=== PATIENT | female | born 1940 | race Caucasian/White ===

== ENCOUNTER 2020-03-29 17:49 | Inpatient (IN) | payer OTHER, BC ==
[~2020-03-29] VITALS: Ht 152.4 cm; Wt 59.7 kg
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
[2020-03-29 17:52] VITALS: BP 133/56
[2020-03-29 19:14] LABS: URINE BILIRUBIN NEGATIVE (Negative); URINE BLOOD TRACE (Negative); URINE COLOR YELLOW; URINE GLUCOSE-RANDOM* NEGATIVE (Negative); URINE KETONES NEGATIVE (Negative); URINE NITRITE-REFLEX NEGATIVE (Negative); URINE PROTEIN (DIPSTICK) NEGATIVE (Negative); URINE SPECIFIC GRAVITY 1.015 (1.005-1.035); URINE UROBILINOGEN 0.2 E.U./dl (0.2-1.0)
[2020-03-29 19:15] LABS: URINE CLARITY SL HAZY; URINE LEUKOCYTES-REFLEX 3+ (Negative)
[2020-03-29] MEDS ORDERED: NORVASC 2.5 MG2.5 M1 PO (19:18)
[2020-03-29 19:19] LABS: SQUAMOUS 4-10 Moderate /LPF (0-3)
[2020-03-29] MEDS ORDERED: HYDROCHLOROTH12.5 M2 PO (19:19)
[2020-03-29 19:20] LABS: CASTS None Seen /LPF (None Seen); CRYSTALS None Seen /LPF (None Seen); URINE RBC 0-2 Rare /HPF (0-2)
[2020-03-29] MEDS ORDERED: LEVOTHYROXINE100 MCG PO (19:20)
[2020-03-29] MEDS ORDERED: NAMENDA 10 MG T10 MG PO (19:20)
[2020-03-29] MEDS ORDERED: OMEPRAZOLE40 MG PO (19:21)
[2020-03-29] MEDS ORDERED: METAMUCIL FIBER2 GM PO (19:21)
[2020-03-29] MEDS ORDERED: ZOLOFT100 MG PO (19:22)
[2020-03-29] MEDS ORDERED: BENTYL 10 MG CA10 MG PO (19:23)
[2020-03-29] MEDS ORDERED: SEROQUEL 25 MG25 M1 PO (19:23)
[2020-03-29] MEDS ORDERED: ACETAMINOPHEN650 M5 PO (19:24)
[2020-03-29] MEDS ORDERED: XANAX 0.25 MG0.25 MG PO (19:32)
[2020-03-29 19:59] VITALS: BP 133/56
[2020-03-29 20:00] VITALS: BP 139/78
[2020-03-29] MEDS ORDERED: SEROQUEL 50 MG50 M1 PO (21:23)
[2020-03-29] MEDS ORDERED: DEPAKOTE125 MG PO (21:23)
[2020-03-30 07:30] VITALS: BP 139/63
--- NOTE | 2020-03-30 14:04 | EKG ---
[facility] [address] [place] [address] ELECTROCARDIOGRAM REPORT Name: ADAMA MCNEILL Room #: [facility] ADM IN M.R.#: [id number] Admission: 03/29/20 Attend Phys: Darvin Mead DO Discharge: Date of : 40 Report #: [id number] THIS REPORT FOR: cc: Prashant Hampton MD, Christopher B. MD Couchonnal, Luis F. MD ~ THIS REPORT FOR: //name// 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
[2020-03-30 22:00] VITALS: BP 138/74
[2020-03-31 06:13] LABS: HEMATOCRIT 41.2 % (37.0-47.0); MCH 31.5 pg (26.0-34.0); MCHC 33.9 g/dL (28.0-37.0); MCV 92.9 fL (80.0-100.0); RBC 4.43 mil/uL (4.20-5.00); RDW 13.7 % (10.5-14.5); WBC 6.3 thou/uL (4.0-11.0)
[2020-03-31 06:40] LABS: CALCIUM 9.3 mg/dL (8.5-10.1); CREATININE 0.9 mg/dL (0.6-1.0); MAGNESIUM 2.1 mg/dL (1.8-2.4)
[2020-03-31 06:43] LABS: POTASSIUM 2.7 mmol/L (3.5-5.1)
[2020-03-31 07:51] VITALS: BP 125/65
[2020-03-31 08:05] LABS: TSH 0.062 uIU/mL (0.358-3.740)
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
[2020-03-31 10:06] VITALS: BP 125/65
[2020-04-01 06:13] LABS: CALCIUM 8.9 mg/dL (8.5-10.1); POTASSIUM 3.1 mmol/L (3.5-5.1)
[2020-04-01 20:04] VITALS: BP 102/78
[2020-04-01 22:00] VITALS: BP 102/78
[2020-04-02 05:57] LABS: ABSOLUTE NEUTROPHILS 3.2 thou/uL (1.4-8.2); BASOPHILS 0.7 % (0.0-2.0); EOSINOPHILS 4.1 % (0.0-3.0); HEMATOCRIT 35.6 % (37.0-47.0); LYMPHOCYTES 28.7 % (24.0-44.0); MCH 31.3 pg (26.0-34.0); MCHC 33.6 g/dL (28.0-37.0); MCV 93.2 fL (80.0-100.0); MONOCYTES 8.3 % (1.0-8.0); PLATELET COUNT 206 thou/uL (150-400); POLYS 58.2 % (36.0-66.0); RBC 3.82 mil/uL (4.20-5.00); RDW 13.7 % (10.5-14.5); WBC 5.4 thou/uL (4.0-11.0)
[2020-04-02 06:10] LABS: CALCIUM 8.8 mg/dL (8.5-10.1); CREATININE 1.1 mg/dL (0.6-1.0); MAGNESIUM 2.2 mg/dL (1.8-2.4)
[2020-04-02 06:14] LABS: POTASSIUM 2.6 mmol/L (3.5-5.1)
[2020-04-02 22:00] VITALS: BP 102/78
[2020-04-03 12:31] VITALS: BP 134/98
[2020-04-03 19:41] VITALS: BP 118/48
[2020-04-04 09:02] VITALS: BP 115/64
[2020-04-04 11:13] VITALS: BP 115/64
[2020-04-04 22:00] VITALS: BP 115/64
[2020-04-05 07:15] VITALS: BP 130/78
[2020-04-05 11:25] LABS: CALCIUM 9.3 mg/dL (8.5-10.1); CREATININE 1.2 mg/dL (0.6-1.0); POTASSIUM 3.7 mmol/L (3.5-5.1)
[2020-04-05 17:15] VITALS: BP 122/60
[2020-04-05 20:02] VITALS: BP 123/79
[2020-04-06 09:05] VITALS: BP 100/46
[2020-04-07 04:50] VITALS: BP 151/66
[2020-04-07 13:32] VITALS: BP 100/63
[2020-04-07 16:27] VITALS: BP 120/62
[2020-04-07 16:57] LABS: URINE BILIRUBIN NEGATIVE (Negative); URINE BLOOD NEGATIVE (Negative); URINE CLARITY CLEAR; URINE COLOR YELLOW; URINE GLUCOSE-RANDOM* NEGATIVE (Negative); URINE KETONES 1+ (Negative); URINE LEUKOCYTES-REFLEX NEGATIVE (Negative); URINE NITRITE-REFLEX NEGATIVE (Negative); URINE PROTEIN (DIPSTICK) NEGATIVE (Negative); URINE SPECIFIC GRAVITY 1.025 (1.005-1.035); URINE UROBILINOGEN 0.2 E.U./dl (0.2-1.0)
[2020-04-07 16:58] LABS: CALCIUM 9.3 mg/dL (8.5-10.1); CREATININE 0.9 mg/dL (0.6-1.0); POTASSIUM 3.3 mmol/L (3.5-5.1)
[2020-04-08 08:50] VITALS: BP 145/83
[2020-04-08 13:21] VITALS: BP 145/83
[2020-04-08 13:28] VITALS: BP 145/83
[2020-04-08 19:45] VITALS: BP 158/79
[2020-04-09 07:49] VITALS: BP 130/63
[2020-04-09 19:26] VITALS: BP 147/120
[2020-04-09 20:40] VITALS: BP 128/78
[2020-04-10 08:57] VITALS: BP 111/63
[2020-04-10 11:29] VITALS: BP 111/66
[2020-04-10 15:30] LABS: CALCIUM 8.7 mg/dL (8.5-10.1); CREATININE 0.7 mg/dL (0.6-1.0); POTASSIUM 3.5 mmol/L (3.5-5.1)
[2020-04-10 20:00] VITALS: BP 114/79
[2020-04-11 09:15] VITALS: BP 136/72
[2020-04-11 17:13] VITALS: BP 172/70
[2020-04-11 19:41] VITALS: BP 130/60
[2020-04-11 20:00] VITALS: BP 130/60
[2020-04-12 07:53] VITALS: BP 144/75
[2020-04-12 10:42] LABS: URINE BILIRUBIN NEGATIVE (Negative); URINE BLOOD NEGATIVE (Negative); URINE CLARITY CLEAR; URINE COLOR YELLOW; URINE GLUCOSE-RANDOM* NEGATIVE (Negative); URINE KETONES TRACE (Negative); URINE LEUKOCYTES-REFLEX NEGATIVE (Negative); URINE NITRITE-REFLEX NEGATIVE (Negative); URINE PROTEIN (DIPSTICK) TRACE (Negative); URINE SPECIFIC GRAVITY 1.015 (1.005-1.035); URINE UROBILINOGEN 0.2 E.U./dl (0.2-1.0)
[2020-04-12 19:26] VITALS: BP 99/74
[2020-04-13 06:38] VITALS: BP 111/81
[2020-04-13 08:00] VITALS: BP 111/81
[2020-04-13 10:27] VITALS: BP 111/81
[2020-04-13 19:38] VITALS: BP 122/96
[2020-04-14 07:35] VITALS: BP 144/89
[2020-04-14 09:27] VITALS: BP 144/89
[2020-04-14 15:36] VITALS: BP 142/93
[2020-04-15 06:10] LABS: HEMATOCRIT 41.3 % (37.0-47.0); HEMOGLOBIN 13.6 gm/dL (12.0-15.0); MCH 30.9 pg (26.0-34.0); MCHC 32.9 g/dL (28.0-37.0); MCV 94.1 fL (80.0-100.0); PLATELET COUNT 311 thou/uL (150-400); RBC 4.39 mil/uL (4.20-5.00); RDW 13.8 % (10.5-14.5); WBC 8.2 thou/uL (4.0-11.0)
[2020-04-15 06:27] LABS: ALBUMIN 3.5 g/dL (3.4-5.0); CALCIUM 9.2 mg/dL (8.5-10.1); CREATININE 0.9 mg/dL (0.6-1.0); MAGNESIUM 2.5 mg/dL (1.8-2.4); PHOSPHORUS 3.6 mg/dL (2.5-4.9); POTASSIUM 3.9 mmol/L (3.5-5.1); TOTAL BILIRUBIN 0.3 mg/dL (0.2-1.0); TOTAL PROTEIN 7.4 g/dL (6.4-8.2)
[2020-04-15 09:05] VITALS: BP 122/63
[2020-04-15 10:28] LABS: ABSOLUTE NEUTROPHILS 5.7 thou/uL (1.4-8.2)
[2020-04-15 11:20] VITALS: BP 122/63
[2020-04-15 19:00] VITALS: BP 112/73
[2020-04-16 07:46] VITALS: BP 138/82
[2020-04-16 19:51] VITALS: BP 143/53
[2020-04-17 08:10] VITALS: BP 123/56
[2020-04-17 08:36] VITALS: BP 123/56
[2020-04-17 20:08] VITALS: BP 139/58
[2020-04-18 07:32] VITALS: BP 128/65
[2020-04-18 11:28] VITALS: BP 128/65
[2020-04-18 19:56] VITALS: BP 139/91
[2020-04-19] MEDS ORDERED: CHLORPROMA25 MG/1 ML IM (09:19)
[2020-04-19] MEDS ORDERED: DEPAKOTE SPRIN125 MG PO (09:19)
[2020-04-19] MEDS ORDERED: CHLORPROMAZINE25 M1 PO (09:20)
[2020-04-19] MEDS ORDERED: OMEPRAZOLE 20 M20 M1 PO (09:22)
[2020-04-19] MEDS ORDERED: SYNTHROID75 MCG PO (09:22)
== END 2020-04-19 11:00 | disposition home or self-care (01) | DRG 884 ==
LOC: ER 17:49 → SBH 19:45
PROVIDERS: Internal Medicine; Nurse Practitioner; Physician Assistant; Psychiatry & Neurology Psychiatry; ADMIT Psychiatry & Neurology Psychiatry; ATTEND Psychiatry & Neurology Psychiatry
DX: F01.51 Vascular dementia, unspecified severity, with behavioral disturbance (principal); E43 Unspecified severe protein-calorie malnutrition; N39.0 Urinary tract infection, site not specified; F25.9 Schizoaffective disorder, unspecified; F22 Delusional disorders; I10 Essential (primary) hypertension; F41.1 Generalized anxiety disorder; F32.9 Major depressive disorder, single episode, unspecified; K21.9 Gastro-esophageal reflux disease without esophagitis; E03.9 Hypothyroidism, unspecified; M85.80 Other specified disorders of bone density and structure, unspecified site; K58.9 Irritable bowel syndrome, unspecified; E87.6 Hypokalemia; I95.9 Hypotension, unspecified; E03.2 Hypothyroidism due to medicaments and other exogenous substances; Z20.828 Contact with and (suspected) exposure to other viral communicable diseases; Z68.25 Body mass index [BMI] 25.0-25.9, adult; Z88.6 Allergy status to analgesic agent; Z88.2 Allergy status to sulfonamides; Z88.8 Allergy status to other drugs, medicaments and biological substances; Z87.891 Personal history of nicotine dependence
CPT/HCPCS: 10880